=== PATIENT | male | born 1945 | race Caucasian/White ===

== ENCOUNTER 2016-11-04 00:04 | Day surgery (SDC) | payer MEDICARE ==
[~2016-11-04] VITALS: Ht 180.3 cm; Wt 84.0 kg
[2016-11-04] VITALS (27 sets, daily range): BP systolic 133–162; BP diastolic 74–92; PULSE 57–81; RESP 16–22; O2SAT 94–98
[~2016-11-04 00:04] MED LIST: ATOR20TA PO; CALC-140 PO; CARV6.252 PO; CHOL10008 PO; MAGN400C PO; NOMED; RIVA15TA PO; SYMINH INHALATION
[2016-11-04 07:12] LABS: BASOPHILS % (AUTO) 0.4 % (0-3); EOSINOPHILS % (AUTO) 3.4 % (0-5); MONOCYTES % (AUTO) 13.5 % (4-12); Mean Corpuscular Hemoglobin 30.8 pg (27.0-35.0); Mean Corpuscular Volume 91.6 fL (81-100); NEUTROPHILS % (AUTO) 65.8 % (40-74); Platelet Count 210 bil/L (150-400)
[2016-11-04] MEDS ORDERED: Heparin 1,000 Units/500 mL NS Premix IV ONE ×2 (07:54→10:17)
[2016-11-04] MEDS ORDERED: Heparin 1,000 Unit/mL 10 mL Inj ONE ×2 (07:55→09:57)
[2016-11-04] MEDS ORDERED: Heparin 10,000 Unit/1,000 mL NS Premix IV ONE ×2 (07:55→07:58)
[2016-11-04] MEDS ORDERED: Nitroglycerin 50,000 mcg/250 mL D5W Premix IV ONE (07:57)
[2016-11-04] MEDS ORDERED: fentaNYL-PF 50 mCg/mL 2 mL Inj ONE ×2 (08:34→09:33)
[2016-11-04] MEDS ORDERED: Abciximab Bolus 2 mg/mL 5 mL Inj ONE (10:15)
[2016-11-04] MEDS ORDERED: Ondansetron 2 mg/mL 2 mL Inj IVPUSH PRN (11:15)
[2016-11-04] MEDS ORDERED: 0.9% Sodium Chloride 1,000 ML IV ONE (11:15)
[2016-11-04] MEDS ORDERED: 0.9% Sodium Chloride 250 ML BOLUS IV PRN (11:15)
[2016-11-04] MEDS ORDERED: Sodium Chloride LOK Flush 10 mL Syringe IVFLUSH PRN (11:15)
[2016-11-04] MEDS ORDERED: HYDROcodone-APAP 5-325 mg Tablet PO PRN (11:15)
[2016-11-04] MEDS ORDERED: Atropine 1 mg/10 mL (Code) Syringe IVPUSH PRN (11:15)
--- NOTE | 2016-11-04 17:00 | NUR ---
Admit Transferred from [facility], received report from RN. Pt A&O, MIGDALIA. R groin is soft, intact, slightly tender. Slight bruising. Pedal pulses palpable. No c/o chest pain or SOB. NS running @100, pt is eating a drinking. Pt voided. BP slight elevated at 144/90. Pt understands he is to be on bedrest until 1830. Reminder written on the board.
[2016-11-04] MEDS: Fluticasone-Salmeterol 500-50 Inhaler INHALATION SCH (20:23)
--- NOTE | 2016-11-04 22:54 | CS94 ---
[address] [address] DIAGNOSTIC CARDIAC CATHETERIZATION PATIENT: OTILIA NAPOLES : 1945 MR#: [id number] ADMIT: 11/04/2016 JOB ID: [id number] SERVICE DATE: 11/04/2016 PROCEDURES PERFORMED: 1. Coronary angiography. 2. Intravascular ultrasound of the left anterior descending artery. 3. Balloon angioplasty followed by stent placement of the left anterior descending artery. INDICATIONS: A 71-year-old man with history of shortness of breath with an abnormal stress test and abnormal stress echo exam. He presents for further assessment by cardiac catheterization. DESCRIPTION OF PROCEDURE: Informed consent was obtained. The patient brought to catheterization laboratory. Initially, a radial approach was planned, however, barbeau testing did not show good quick resolution of perfusion with compression of the radial artery on either side. Therefore, plans were made for access to the right femoral artery. The right femoral artery was anesthetized with lidocaine and using a micropuncture kit and modified Seldinger technique, access was obtained and a long 5-Sinhala sheath was advanced. Ultimately, this was converted to a Raabe sheath to bypass the area of aortic aneurysm. Of note, the iliacs have some aneurysmal changes as well. A 5-Sinhala JL5 catheter was advanced and used to cannulate the left coronary artery and angiography was obtained. This catheter was removed and a 5-Sinhala JR4 catheter was advanced over a wire and used to cannulate the right coronary and angiographic views obtained. Given findings of a high-grade LAD stenosis, intervention was planned. An angiographic view of the right femoral access site was obtained prior to switching out to a 6-Sinhala Raabe sheath. A 6-Sinhala CLS4 guide was advanced over a wire and used to cannulate the left coronary artery and angiographic views obtained. A Prowater wire would not advance across the area of stenosis, however, a whisper wire did advance very nicely. Then a 2.5 x 12 mm balloon was advanced to the area of stenosis and inflated to nominal pressures. A 3 x 12 mm balloon was also inflated to nominal pressures. IVUS was then advanced distal to the area stenosis and pulled forward. The vessel distal to the area of stenosis was in the range of 3-3.25 mm. The area proximal to the stenosis was in the range of 3.5 or slightly higher. Therefore, plans were made for dilation with a 3.25 mm balloon and then plans were made for placement of a 3.25 mm stent. Ultimately, a 3.25 x 18 mm Xience stent was advanced into the area of stenosis. This was carefully placed and this was deployed initially at 11 atmospheres. A 3.5 x 12 mm noncompliant balloon was advanced to the area of stenting and this was inflated to more nominal pressures and then to much higher pressures in the more proximal segment of the vessel. After stenting, this gave an excellent angiographic result with brisk flow in the artery. No significant residual stenosis. No evidence of dissection. There is some pinching of a small adjacent diagonal branch, however, there is still flow appreciated in that vessel. The case was ended. The long Raabe sheath was changed out to a short 6-Sinhala sheath and sutured in place with plans for removal at a later time. There were no complications. FINDINGS: 1. Circumflex artery. This vessel has mostly mild disease, however, in its mid segment there is approximately 40% stenosis which is eccentric in character. There was good flow into the artery. 2. Left anterior descending artery. This vessel has a very high-grade stenosis estimated at 99%. This continues down with BARBRA II flow with minor luminal irregularities but no obstructive lesions appreciated. As noted, the vessel was predilated then assessed with IVUS, and then ultimately stented with a drug-eluting stent which was then post dilated with a 3.5 mm noncompliant balloon. After stenting, an excellent angiographic result was obtained. 3. Right coronary artery. This vessel has no evidence of obstructive disease. It does have evidence for mild disease throughout. 4. IVUS of the left anterior descending is as described. HEMODYNAMICS: Aortic pressure in the range of 119-145/70s-80s. Heart rates in the 50s to 60s. IMPRESSION: 1. Successful balloon angioplasty followed by stent placement of the left anterior descending given the abnormal stress test with ischemia in this distribution. 2. No other obstructive disease appreciated. 3. Successful intravascular ultrasound of the left anterior descending artery. [facility]
[2016-11-05 04:04] LABS: Mean Corpuscular Hemoglobin 30.4 pg (27.0-35.0); Mean Corpuscular Volume 91.1 fL (81-100)
[2016-11-05 04:28] VITALS: BP 137/90; PULSE 75; RESP 18; O2SAT 95
[2016-11-05 05:38] LABS: APPEARANCE,URINE CLEAR (CLEAR,HAZY); COLOR,URINE YELLOW (YELLOW)
[2016-11-05 05:39] LABS: OCCULT BLOOD,URINE NEGATIVE (NEGATIVE); UROBILINOGEN,URINE NORMAL (NORMAL)
--- NOTE | 2016-11-05 06:21 | NUR ---
NOC PT up ad [place] after bedrest complete. Right groin is bruised, but no hematoma palpated. Femoral pulse and DP palpable. PT denies any CP or SOB. Hr is SR in the 80's. UA sent per protocol. Pt will plan to d/c today.
[2016-11-05 07:44] VITALS: BP 173/86; PULSE 82; RESP 16; O2SAT 100
[2016-11-05] MEDS: Fluticasone-Salmeterol 500-50 Inhaler INHALATION SCH (07:48)
[2016-11-05 11:04] VITALS: PULSE 83
[2016-11-05] MEDS ORDERED: CARV12.52 PO (11:25)
--- NOTE | 2016-11-05 12:02 | NUR ---
Discharge Pt discharged at 1200. Prior to discharge he was given information on new medication (plavix) and coronary artery angioplasty with stent placement. The patient confirmed understanding of these instructions. He was given an information card on the stent he had placed. He was given instructions for follow up care. He denied any questions. was present at the bedside. He was given one new prescription to take with him. He left with all of his belongings in his possession. He was walked to the exit by staff where his had his car waiting to drive him home.
--- NOTE | 2016-11-05 15:10 | DIS ---
[address] [address] DISCHARGE SUMMARY PATIENT: OTILIA NAPOLES : 1945 MR#: [id number] ADMIT: 11/04/2016 JOB ID: [id number] DIS: 11/05/2016 ADMISSION DIAGNOSIS: Shortness of breath. Abnormal stress test. PROCEDURES PERFORMED: Cardiac catheterization with stent placement to the mid left anterior descending artery for a high-grade stenosis. BRIEF HISTORY OF PRESENT ILLNESS: The patient is a patient followed by Dr. Kael Brewer. Has a history of paroxysmal atrial fibrillation as well as lung disease but having increased shortness of breath. He had stress testing that was abnormal suggesting left anterior descending artery disease. On the day of admission, the patient was taken to the labor economist. There, findings of a high-grade LAD stenosis were identified. This was treated with balloon angioplasty assessment, IVUS followed by stenting with a Xience 3.25 x18 mm stent. The patient did very well. He had no chest pain, chest pressure. He had no arrhythmias on telemetry. He felt better immediately walking around. The groin had some bruising. However, there was no evidence for any hematoma. On the day of admission, his early blood pressure is 137/90, afebrile. heart rate 75, in sinus rhythm. Sats are 95% on room air. General: In no acute distress. Speaking in full sentences without shortness of breath. Head and neck exam: Normocephalic, atraumatic. Neck: No obvious JV distention. Heart exam: Regular rate and rhythm. Lungs clear. Back: No CVA tenderness to palpation. Abdomen soft. Groin site with bruising but no hematoma, no bruits. Extremities: Warm without edema, 2+ distal pulses appreciated. Skin with bruising as noted. Gait is normal. Psych: Appropriate mood and affect. MEDICATIONS: Include: 1. Carvedilol was written a 6.25 mg b.i.d. but the patient informed me that he is really on a larger dose in the morning at 12.5. 2. He is on Plavix 75 a day. 3. Aspirin 325, which will be switched to baby aspirin. 4. Atorvastatin 20 mg q.h.s. LABS: On the day of discharge, include a white count 7.4, H and H 11.9 and 35.7, platelets 208,000. Chemistry shows sodium 137, potassium 4.4, chloride and bicarb 103 and 22, respectively. BUN and creatinine 18 and 1.36, stable from admission. Telemetry as noted. IMPRESSION: The patient is doing very well after stenting to his left anterior descending artery. PLAN: We discharged him home today. Given Dr. Brewer's busy schedule I will see him on November 21 for his initial followup, but he will see Dr. Brewer in approximately three months. Please see discharge medications. 1. He will be on a baby aspirin. 2. He will be on clopidogrel. 3. Coreg. 4. He will also stay on Xarelto. I am aware that this is triple therapy and if he has any issues with tolerating the three medications we can always stop the aspirin at some point. However, at this juncture, he seems to be doing very well. As noted, patient will have followup with myself on November 21. Follow up with myself on the of this month and then subsequently in three months with Dr. Brewer. I spent a great amount of time explaining to him the very importance of being compliant with taking the clopidogrel and the aspirin given the new stent. He expressed understanding. He was also told to avoid heavy lifting for the next 4-5 days. Over 30 minutes was spent discussing the ramifications of this diagnosis, my recommendations for compliance with medications, and discussing plans for followup and activity levels. VIKY
== END 2016-11-05 12:10 | disposition home or self-care (01) ==
LOC: SOUO 00:04 → PCC 15:54 → SOUO 11-05 12:10
PROVIDERS: ATTEND Internal Medicine
DX: I25.10 Atherosclerotic heart disease of native coronary artery without angina pectoris (principal); I13.10 Hypertensive heart and chronic kidney disease without heart failure, with stage 1 through stage 4 chronic kidney disease, or unspecified chronic kidney disease; N18.9 Chronic kidney disease, unspecified; J44.9 Chronic obstructive pulmonary disease, unspecified; I71.4 Abdominal aortic aneurysm, without rupture; I48.0 Paroxysmal atrial fibrillation; E78.5 Hyperlipidemia, unspecified; Z79.01 Long term (current) use of anticoagulants; Z87.891 Personal history of nicotine dependence; Z86.73 Personal history of transient ischemic attack (TIA), and cerebral infarction without residual deficits
CPT/HCPCS: 36415; 80048; 81000; 85025; 85027; 92978; 93005; 93454; 99152; 99153; C1725; C1753; C1766; C1769; C1874; C1887; C1894; C9600; J0130; J1200; J1644; J2060; J2250; J3010; J7030; Q9967